=== PATIENT | male | born 1980 | race Caucasian/White ===

== ENCOUNTER 2018-01-07 15:23 | Emergency (ER) | payer MEDICAID ==
[~2018-01-07] VITALS: Ht 177.8 cm; Wt 77.1 kg
[~2018-01-07 15:23] MED LIST: CLON0.2T12; CLON1TAB23 PO
--- NOTE | 2018-01-07 15:30 | NUR ---
c/o LLQ abdominal pain hx ulcerative colitis flare up. a/ox 4. breathing even and unlabored. no sob, nad, vitals stable. safety and comfort measures in place. awaiting md orders.
[2018-01-07] MEDS ORDERED: MORPHINE SULFATE INJ 4 MG/ML DISP.SYRIN ONE (15:42)
[2018-01-07] MEDS ORDERED: ONDANSETRON HCL/PF 4 MG/2 ML VIAL ONE (15:42)
--- NOTE | 2018-01-07 15:55 | NUR ---
NEW IV STARTED ON LAC, 18G. BLOOD DRAWN AND SENT TO LAB.
[2018-01-07 15:57] LABS: BASOPHILS % (AUTO) 0.3 % (0.0-2.0); EOSINOPHILS % (AUTO) 0.7 % (0.0-6.0); HEMATOCRIT 37 % (39-51); HEMOGLOBIN 12.3 g/dL (13.5-17.5); LYMPHOCYTES # (AUTO) 1.4 /CMM (0.8-4.8); LYMPHOCYTES % (AUTO) 9.7 % (20.0-44.0); MEAN CORPUSCULAR HGB CONC 33 g/dl (31.0-36.0); MEAN CORPUSCULAR VOLUME 78 fL (80-96); MONOCYTES # (AUTO) 1.1 /CMM (0.1-1.30); MONOCYTES % (AUTO) 7.7 % (2.0-12.0); NEUTROPHILS # (AUTO) 11.6 /CMM (1.8-8.9); NEUTROPHILS % (AUTO) 81.6 % (43.0-81.0); PLATELET COUNT (AUTO) 541 /CMM (150-450); RDW COEFFICIENT OF VARIATION 15.5 (11.5-15.0); RED BLOOD CELL COUNT(AUTO) 4.81 MIL/uL (4.5-6.0); WHITE BLOOD COUNT (AUTO) 14.3 K/uL (4.3-11.0)
[2018-01-07] MEDS ORDERED: IV NS 0.9% 1,000 ML BAG IV ONE (16:00)
[2018-01-07] MEDS ORDERED: MORPHINE SULFATE INJ 2 MG/ML DISP.SYRIN IV ONE (16:00)
[2018-01-07] MEDS ORDERED: ONDANSETRON HCL/PF 4 MG/2 ML VIAL IVP ONE (16:00)
--- NOTE | 2018-01-07 16:00 | NUR ---
PATIENT MEDICATED PER MD ORDERS.
[2018-01-07 16:22] LABS: ALBUMIN 3.4 g/dL (3.4-5.0); BILIRUBIN,DIRECT 0.1 mg/dL (0.0-0.2); BILIRUBIN,TOTAL 0.4 mg/dL (0.2-1.0); CALCIUM, SERUM 9.2 mg/dL (8.5-10.1); CREATININE 0.8 mg/dL (0.6-1.3); POTASSIUM 3.7 mmol/L (3.5-5.1)
[2018-01-07 16:28] LABS: INR 0.94 (0.87-1.13)
[2018-01-07] MEDS ORDERED: IOHEXOL-300 100 ML VIAL IV ONE (16:29)
[2018-01-07] MEDS ORDERED: CT SWABBABLE VALVE TRANS SET 1 EA INFUS.SET MC ONE (16:29)
[2018-01-07] MEDS ORDERED: IV NS 0.9% 500 ML IV ONE (16:30)
--- NOTE | 2018-01-07 16:35 | NUR ---
PATIENT TAKEN TO RADIOLOGY VIA WHEELCHAIR.
--- NOTE | 2018-01-07 16:50 | NUR ---
PATIENT RETURNED FROM RADIOLOGY IN STABLE CONDITION.
[2018-01-07 17:22] LABS: APPEARANCE,URINE Slightly Cloudy (CLEAR); BILIRUBIN,URINE Negative (NEGATIVE); BLOOD, URINE Negative Ery/uL (NEGATIVE); COLOR,URINE Yellow (YELLOW); KETONES,URINE Negative (NEGATIVE); LEUKOCYTE ESTERASE ,URINE Trace (NEGATIVE); NITRITE, URINE Negative (NEGATIVE); PH,URINE 6.5 (5.0-8.0); PROTEIN,URINE Negative (NEGATIVE); UGLUCOSE Negative (NEGATIVE); UROBILINOGEN,URINE 0.2 EU/dL (0.2)
[2018-01-07 17:41] LABS: BACTERIA,URINE Few /HPF (None Seen); RBC,URINE 0-2 /HPF (0-2); SQUAMOUS EPITHELIAL CELL,UR Few /HPF (None Seen); WBC,URINE 0-2 /HPF (0-3)
[2018-01-07 18:04] LABS: BAND % (MANUAL) 2 % (0.0-5.0); EOSINOPHILS % (MANUAL) 1 % (0-4); LYMPHOCYTES % (MANUAL) 11 % (16-48); MONOCYTES % (MANUAL) 8 % (0-11.0); NEUTROPHILS % (MANUAL) 78 (42-76)
[2018-01-07] MEDS ORDERED: predniSONE 20 MG TABLET ONE (18:58)
[2018-01-07] MEDS ORDERED: predniSONE 20 MG TABLET PO ONE (19:00)
[2018-01-07 19:10] VITALS: BP 112/71
--- NOTE | 2018-01-07 19:11 | NUR ---
IV removed. Catheter intact and site benign. Pressure and 4x4 applied to site. No bleeding noted. Patient discharged to home in stable condition. Written and verbal after care instructions given. Patient verbalizes understanding of instruction.
== END 2018-01-07 19:11 | disposition home or self-care (01) ==
LOC: ER 15:25
DX: K51.90 Ulcerative colitis, unspecified, without complications (principal); F41.9 Anxiety disorder, unspecified
CPT/HCPCS: 36415; 80048-TC; 80076-TC; 81000-TC; 83690-TC; 85025-TC; 85730-TC; A4606; J2270; J2405; J7030; J7040; Q9967; Z7610

== ENCOUNTER 2018-06-12 21:44 | Emergency (ER) | payer OTHER ==
[~2018-06-12] VITALS: Ht 177.8 cm; Wt 77.1 kg
--- NOTE | 2018-06-12 21:50 | NUR ---
TO ER BED 4 C/O OF SUPRAPUBIC PAIN X 5 DAYS. PT AA/OX4. HX OF CURRENT COMPLAINT. +N/-V/-D. "MY STOOL IS BRIGHT AND BLOODY AND IT IS PAINFUL WHEN I URINATE." NO S/S SOB. ACTIVE BOWEL MOVEMENTS NOTED. SKIN PINK, WAR, DRY. ABLE TO MOVE ALL EXTREMITIES WELL. PEDAL PULSES PRESENT. AMBULATED TO BED WITH STABLE GAIT. NAD. VSS. WILL CONTINUE TO MONITOR.
--- NOTE | 2018-06-12 23:07 | NUR ---
Patient is resting comfortably in bed with FAMILY AT BEDSIDE. Easily aroused. VSS
[2018-06-12] MEDS ORDERED: ONDANSETRON HCL/PF 4 MG/2 ML VIAL ONE (23:29)
[2018-06-12] MEDS ORDERED: methylPREDNISolone SOD SUCC 125 MG/2ML VIAL ONE (23:29)
[2018-06-12] MEDS ORDERED: HYDROMORPHONE 1 MG/1 ML DISP.SYRIN ONE (23:30)
[2018-06-12] MEDS: HYDROMORPHONE INJ 2 MG/ML DISP.SYRIN IV ONE (23:30)
[2018-06-12] MEDS: ONDANSETRON HCL/PF 4 MG/2 ML VIAL IVP ONE (23:30)
[2018-06-12] MEDS: methylPREDNISolone SOD SUCC 125 MG/2ML VIAL IV ONE (23:30)
[2018-06-12] MEDS: IV NS 0.9% 1,000 ML BAG IV ONE (23:30)
[2018-06-13 00:05] LABS: CALCIUM, SERUM 8.8 mg/dL (8.5-10.1); CREATININE 0.7 mg/dL (0.6-1.3); POTASSIUM 3.4 mmol/L (3.5-5.1)
[2018-06-13] MEDS ORDERED: IOHEXOL-300 100 ML VIAL IV ONE (00:07)
[2018-06-13] MEDS ORDERED: CT SWABBABLE VALVE TRANS SET 1 EA INFUS.SET MC ONE (00:07)
[2018-06-13 00:09] LABS: EOSINOPHILS % (AUTO) 0.3 % (0.0-6.0); HEMATOCRIT 35 % (39-51); HEMOGLOBIN 10.3 g/dL (13.5-17.5); LYMPHOCYTES # (AUTO) 1.8 /CMM (0.8-4.8); LYMPHOCYTES % (AUTO) 16.8 % (20.0-44.0); MEAN CORPUSCULAR HGB CONC 29 g/dl (31.0-36.0); MEAN CORPUSCULAR VOLUME 72 fL (80-96); MONOCYTES # (AUTO) 1.3 /CMM (0.1-1.30); MONOCYTES % (AUTO) 12.3 % (2.0-12.0); NEUTROPHILS # (AUTO) 7.4 /CMM (1.8-8.9); NEUTROPHILS % (AUTO) 70.6 % (43.0-81.0); PLATELET COUNT (AUTO) 472 /CMM (150-450); RED BLOOD CELL COUNT(AUTO) 4.88 MIL/uL (4.5-6.0); WHITE BLOOD COUNT (AUTO) 10.5 K/uL (4.3-11.0)
[2018-06-13 00:11] LABS: ALBUMIN 2.7 g/dL (3.4-5.0); BILIRUBIN,TOTAL 0.1 mg/dL (0.2-1.0); TOTAL PROTEIN, SERUM 7.1 g/dL (6.4-8.2)
--- NOTE | 2018-06-13 00:11 | NUR ---
AMBULATED TO BATHROOM WITH STABLE GAIT.
[2018-06-13 00:35] LABS: INR 0.97 (0.87-1.13)
--- NOTE | 2018-06-13 01:21 | NUR ---
AMBULATED TO BATHROOM WITH STABLE GAIT
[2018-06-13 01:41] LABS: OCCULT BLOOD STOOL POSITIVE (NEGATIVE)
[2018-06-13 01:45] LABS: APPEARANCE,URINE CLEAR (CLEAR); BILIRUBIN,URINE NEGATIVE (NEGATIVE); BLOOD, URINE TRACE-INTA Ery/uL (NEGATIVE); COLOR,URINE YELLOW (YELLOW); KETONES,URINE NEGATIVE (NEGATIVE); LEUKOCYTE ESTERASE ,URINE NEGATIVE (NEGATIVE); NITRITE, URINE NEGATIVE (NEGATIVE); PROTEIN,URINE NEGATIVE (NEGATIVE); UGLUCOSE NEGATIVE (NEGATIVE); UROBILINOGEN,URINE 0.2 EU/dL (0.2)
--- NOTE | 2018-06-13 01:54 | NUR ---
CALLED [facility] REGARDING PENDING CT ABD, PER ROBERT CT BEING READ AT THIS TIME.
[2018-06-13 02:07] LABS: BACTERIA,URINE None seen /HPF (None Seen); SQUAMOUS EPITHELIAL CELL,UR Few /HPF (None Seen); WBC,URINE 0-2 /HPF (0-3)
--- NOTE | 2018-06-13 02:22 | NUR ---
Patient discharged to home in stable condition. Written and verbal after care instructions given. Patient verbalizes understanding of instruction. IV removed. Catheter intact and site benign. Pressure and 4x4 applied to site. No bleeding noted. AMBULATED WITH STABLE GAIT. INSTRUCTED NOT TO DRIVE OR OPERATE HEAVY MACHINERY
[2018-06-13 02:24] VITALS: BP 118/72
== END 2018-06-13 02:25 | disposition home or self-care (01) ==
LOC: ER 21:44
DX: K62.5 Hemorrhage of anus and rectum (principal); K51.90 Ulcerative colitis, unspecified, without complications; E86.0 Dehydration; F41.9 Anxiety disorder, unspecified; Z98.890 Other specified postprocedural states
CPT/HCPCS: 36415; 74177; 80048; 80076; 81001; 82272; 83690; 85025; 85730; 86850; 96361; 96374; 96375; 99285; A4606; J1170; J2405; J2930; J7030; Q9967; Z7610; 81000-TC

== ENCOUNTER 2019-03-09 11:59 | Emergency (ER) | payer SELFPAY ==
[~2019-03-09] VITALS: Ht 177.8 cm; Wt 77.1 kg
[2019-03-09 12:09] VITALS: BP 122/84
== END 2019-03-09 12:26 | disposition home or self-care (01) ==
LOC: ER 12:02
DX: Z76.0 Encounter for issue of repeat prescription (principal); F41.9 Anxiety disorder, unspecified; Z98.890 Other specified postprocedural states; Z60.2 Problems related to living alone; Z79.899 Other long term (current) drug therapy

== ENCOUNTER 2022-12-09 20:07 | Emergency (ER) | payer OTHER ==
[~2022-12-09] VITALS: Ht 177.8 cm; Wt 79.4 kg
[2022-12-09] MEDS ORDERED: IV NS 0.9% 1,000 ML BAG IV ONE (21:30)
[2022-12-09 21:35] LABS: BASOPHILS % (AUTO) 0.3 % (0.0-2.0); EOSINOPHILS % (AUTO) 1.2 % (0.0-6.0); HEMATOCRIT 39 % (39-51); HEMOGLOBIN 12.2 g/dL (13.5-17.5); LYMPHOCYTES # (AUTO) 0.9 K/uL (0.8-4.8); LYMPHOCYTES % (AUTO) 11.5 % (20.0-44.0); MEAN CORPUSCULAR HGB CONC 32 g/dl (31.0-36.0); MEAN CORPUSCULAR VOLUME 76 fL (80-96); MONOCYTES # (AUTO) 1.3 K/uL (0.1-1.30); MONOCYTES % (AUTO) 16.8 % (2.0-12.0); NEUTROPHILS # (AUTO) 5.6 K/uL (1.8-8.9); NEUTROPHILS % (AUTO) 70.2 % (43.0-81.0); PLATELET COUNT (AUTO) 395 K/uL (150-450); RED BLOOD CELL COUNT(AUTO) 5.11 MIL/uL (4.5-6.0); WHITE BLOOD COUNT (AUTO) 7.9 K/uL (4.3-11.0)
--- NOTE | 2022-12-09 21:37 | NUR ---
BIBWIFE TO ER BED 10. AAOX4. NOT IN RESP DISTRESS. AMBULATORY. CAME IN FOR RECTAL BLEEDING AND PAIN 2ND TO COLITIS EXACERBATION. DM WAS AT THE BEDSIDE FOR EVAL.
[2022-12-09] MEDS ORDERED: MORPHINE SULFATE INJ 2 MG/ML DISP.SYRIN ONE (21:47)
[2022-12-09] MEDS ORDERED: methylPREDNISolone SOD SUCC 125 MG/2ML VIAL ONE (21:48)
[2022-12-09] MEDS ORDERED: ONDANSETRON HCL/PF 4 MG/2 ML VIAL ONE (21:48)
[2022-12-09] MEDS ORDERED: methylPREDNISolone SOD SUCC 125 MG/2ML VIAL IV ONE (22:00)
[2022-12-09] MEDS ORDERED: MORPHINE SULFATE INJ 2 MG/ML DISP.SYRIN IV ONE (22:00)
[2022-12-09] MEDS ORDERED: ONDANSETRON HCL/PF 4 MG/2 ML VIAL IVP ONE (22:00)
[2022-12-09] MEDS ORDERED: IV NS 0.9% 250 ML IV ONE (22:02)
[2022-12-09] MEDS ORDERED: CT SWABBABLE VALVE TRANS SET 1 EA INFUS.SET MC ONE (22:02)
[2022-12-09] MEDS ORDERED: IOHEXOL-300 100 ML VIAL IV ONE (22:02)
[2022-12-09 22:03] LABS: ALBUMIN 2.5 g/dL (3.4-5.0); BILIRUBIN,DIRECT 0.1 mg/dL (0.0-0.2); BILIRUBIN,TOTAL 0.3 mg/dL (0.2-1.0); CALCIUM, SERUM 8.8 mg/dL (8.5-10.1); CREATININE 0.8 mg/dL (0.6-1.3); POTASSIUM 3.6 mmol/L (3.5-5.1); TOTAL PROTEIN, SERUM 6.8 g/dL (6.4-8.2)
[2022-12-09] MEDS ORDERED: PRED50TA PO (22:52)
[2022-12-09] MEDS ORDERED: ONDA4TAB11 PO (22:52)
[2022-12-09] MEDS ORDERED: KETO10TA2 PO (22:52)
[2022-12-09] MEDS ORDERED: CIPR500T5 PO (22:52)
--- NOTE | 2022-12-09 23:12 | NUR ---
APatient discharged to home in stable condition. Written and verbal after care instructions given. Patient verbalizes understanding of instruction.IV removed. Catheter intact and site benign. Pressure and 4x4 applied to site. No bleeding noted. Pt ambulatory with a steady gait
[2022-12-09 23:14] VITALS: BP 112/76
[2022-12-10 19:35] LABS: BAND % (MANUAL) 2 % (0.0-5.0); LYMPHOCYTES % (MANUAL) 12 % (16-48); MONOCYTES % (MANUAL) 12 % (0-11.0); NEUTROPHILS % (MANUAL) 74 (42-76)
== END 2022-12-09 23:15 | disposition home or self-care (01) ==
LOC: ER 20:09
DX: K51.90 Ulcerative colitis, unspecified, without complications (principal); Z79.899 Other long term (current) drug therapy
CPT/HCPCS: 99285; 74177; 96374; 96375; 96361; 85025; 80048; 83605; 83690; 80076; 36415; 85730; 85007; J2930; J2405; J7030; J7050; J2270; Q9967